=== PATIENT | male | born 1985 | race Caucasian/White ===

== ENCOUNTER 2021-06-19 15:53 | Inpatient (IN) | payer OTHER, MEDICARE, MEDICAID ==
[~2021-06-19] VITALS: Ht 154.9 cm; Wt 44.0 kg
[~2021-06-19 15:53] MED LIST: ABILIFY10 MG PO; BACLOFEN20 M1 PO; DEPAKENE S250 MG/5 M PO; MIRALAX POWDER17 G1 GT; PAXIL10 MG/5 M1 JT
[2021-06-19 16:00] VITALS: BP 110/51
[2021-06-19 20:00] VITALS: BP 108/56
[2021-06-20] VITALS: BP 94/53
[2021-06-20 08:00] VITALS: BP 87/63
[2021-06-20 12:45] VITALS: BP 113/69
[2021-06-20 16:00] VITALS: BP 103/60
[2021-06-20 20:00] VITALS: BP 102/59
[2021-06-21] VITALS: BP 84/53
== END 2021-06-21 03:04 | DRG 871 ==
LOC: ICCU 15:53 → 5E 06-20 14:28
PROVIDERS: ADMIT Emergency Medicine; ATTEND Emergency Medicine
DX: A41.9 Sepsis, unspecified organism (principal); J96.01 Acute respiratory failure with hypoxia; J18.9 Pneumonia, unspecified organism; E43 Unspecified severe protein-calorie malnutrition; J86.9 Pyothorax without fistula; E87.3 Alkalosis; Z68.1 Body mass index [BMI] 19.9 or less, adult; Z66 Do not resuscitate; Z51.5 Encounter for palliative care; R65.20 Severe sepsis without septic shock; R13.10 Dysphagia, unspecified; G80.9 Cerebral palsy, unspecified; E87.6 Hypokalemia; D64.9 Anemia, unspecified